=== PATIENT | female | born 1965 | race Caucasian/White ===

== ENCOUNTER 2022-11-08 16:50 | Emergency (ER) | payer SELFPAY ==
[~2022-11-08] VITALS: Ht 166 cm; Wt 68.0 kg
--- NOTE | 2022-11-08 17:10 | ED General ---
General Chief Complaint: General Problems/Pain Stated Complaint: HEMOGLOBIN LOW Source of Information: Patient Exam Limitations: No Limitations History of Present Illness Date Seen by Provider: Nov 08, 2022 Time Seen by Provider: 17:07 Initial Comments Patient is a 56-year-old female with a history of RA, sciatica Psoriatic arthritis, fibromyalgia who presents ED for low hemoglobin. Had lab work drawn yesterday with a hemoglobin of 8. Lab work drawn last month with a hemoglobin of 10. Patient states she has had intermittent abdominal pain but no pain today. She states she has been feeling weak and fatigue over the past 2 to 3 weeks. 15 pound weight loss over the past month. She states she has been told that she has been anemic. She is currently on emberol injections. She does report chronic joint pain. Was seen by her primary care physician yesterday and states she had a prescription sent for prednisone. She also reports feeling short of breath over the past month. Denies of any specific chest pain. Denies of any blood thinner use. History of dark urine but none over the past few weeks. Denies any dark tarry stool. She does take 800 mg ibuprofen daily. Denies of any excessive alcohol use. History of . She denies headache, fever, neck pain, visual changes, sore throat, chest pain, history of coronary artery disease, vomiting. Episode of diarrhea yesterday. She does smoke. Denies COPD or asthma. Was recommended come the ED for CT scan of her abdomen and recheck of her lab work. She does not take iron supplements. Allergies and Home Medications Allergies Coded Allergies: No Known Drug Allergies (Unverified , 11/08/22) Patient Home Medication List Home Medication List Reviewed: Yes Review of Systems Review of Systems Constitutional: No chills, No diaphoresis, No fever; malaise, weakness Respiratory: No cough, No dyspnea on exertion; short of breath Cardiovascular: No chest pain, No edema, No palpitations, No syncope Gastrointestinal: abdominal pain, diarrhea; No nausea, No vomiting Genitourinary: No decreased output, No discharge, No dysuria, No frequency, No hematuria Musculoskeletal: No back pain, No joint pain Skin: No change in color, No change in hair/nails All Other Systems Reviewed Negative Unless Noted: Yes Physical Exam Vital Signs Vital Signs - First Documented 11/08/22 16:58 Temp 36.9 Pulse 84 Resp 20 B/P (MAP) 137/67 (90) Pulse Ox 98 Capillary Refill : Height, Weight, BMI Height: '" Weight: lbs. oz. kg; BMI Method: General Appearance: No Apparent Distress, WD/WN Eyes: Bilateral Eye Normal Inspection, Bilateral Eye PERRL, Bilateral Eye EOMI HEENT: PERRL/EOMI, TMs Normal, Normal ENT Inspection, Pharynx Normal Neck: Full Range of Motion, Normal Inspection, Non Tender, Supple Respiratory: Chest Non Tender, Lungs Clear, Normal Breath Sounds, No Accessory Muscle Use, No Respiratory Distress Cardiovascular: Regular Rate, Rhythm, No Edema, No Gallop, No JVD Gastrointestinal: Normal Bowel Sounds, No Organomegaly, No Pulsatile Mass, Non Tender Back: Normal Inspection, No CVA Tenderness, No Vertebral Tenderness Extremity: Normal Capillary Refill, Normal Inspection, Normal Range of Motion, Non Tender Skin: Other (Psoriatic diffuse rash.) Progress/Results/Core Measures Suspected Sepsis SIRS Temperature: Pulse: Respiratory Rate: Laboratory Tests 11/08/22 17:04: White Blood Count 9.9 Blood Pressure / Mean: Laboratory Tests 11/08/22 17:04: Creatinine 1.01, INR Comment 1.0, Platelet Count 501H, Total Bilirubin 0.2 Results/Orders Lab Results Laboratory Tests Test 11/08/22 17:04 11/08/22 18:19 11/09/22 08:39 Range/Units White Blood Count 9.9 4.3-11.0 10^3/uL Red Blood Count 2.91 L 3.80-5.11 10^6/uL Hemoglobin 7.3 L 11.5-16.0 g/dL Hematocrit 24 L 35-52 % Mean Corpuscular Volume 83 80-99 fL Mean Corpuscular Hemoglobin 25 25-34 pg Mean Corpuscular Hemoglobin Concent 30 L 32-36 g/dL Red Cell Distribution Width 15.2 H 10.0-14.5 % Platelet Count 501 H 130-400 10^3/uL Mean Platelet Volume 9.6 9.0-12.2 fL Immature Granulocyte % (Auto) 0 % Neutrophils (%) (Auto) 48 42-75 % Lymphocytes (%) (Auto) 12 12-44 % Monocytes (%) (Auto) 8 0-12 % Eosinophils (%) (Auto) 32 H 0-10 % Basophils (%) (Auto) 0 0-10 % Neutrophils # (Auto) 4.7 1.8-7.8 10^3/uL Lymphocytes # (Auto) 1.2 1.0-4.0 10^3/uL Monocytes # (Auto) 0.8 0.0-1.0 10^3/uL Eosinophils # (Auto) 3.1 H 0.0-0.3 10^3/uL Basophils # (Auto) 0.0 0.0-0.1 10^3/uL Immature Granulocyte # (Auto) 0.0 0.0-0.1 10^3/uL Neutrophils % (Manual) 50 % Lymphocytes % (Manual) 7 % Monocytes % (Manual) 12 % Eosinophils % (Manual) 31 % Basophils % (Manual) 0 % Band Neutrophils 0 % Polychromasia SLIGHT Hypochromasia SLIGHT Anisocytosis SLIGHT Prothrombin Time 13.7 12.2-14.7 SEC INR Comment 1.0 0.8-1.4 Activated Partial Thromboplast Time 26 24-35 SEC Sodium Level 140 135-145 MMOL/L Potassium Level 3.3 L 3.6-5.0 MMOL/L Chloride Level 109 H 98-107 MMOL/L Carbon Dioxide Level 17 L 21-32 MMOL/L Anion Gap 14 5-14 MMOL/L Blood Urea Nitrogen 11 7-18 MG/DL Creatinine 1.01 0.60-1.30 MG/DL Estimat Glomerular Filtration Rate 66 BUN/Creatinine Ratio 11 Glucose Level 121 H 70-105 MG/DL Calcium Level 8.4 L 8.5-10.1 MG/DL Corrected Calcium 8.9 8.5-10.1 MG/DL Total Bilirubin 0.2 0.1-1.0 MG/DL Aspartate Amino Transf (AST/SGOT) 18 5-34 U/L Alanine Aminotransferase (ALT/SGPT) 15 0-55 U/L Alkaline Phosphatase 82 40-136 U/L Troponin I < 0.028 <0.028 NG/ML B-Type Natriuretic Peptide 106.9 H <100.0 PG/ML Total Protein 6.7 6.4-8.2 GM/DL Albumin 3.4 3.2-4.5 GM/DL Urine Color ORANGE Urine Clarity CLOUDY Urine pH 6.0 5-9 Urine Specific Strang 1.025 H 1.016-1.022 Urine Protein TRACE H NEGATIVE Urine Glucose (UA) NEGATIVE NEGATIVE Urine Ketones NEGATIVE NEGATIVE Urine Nitrite NEGATIVE NEGATIVE Urine Bilirubin 1+ H NEGATIVE Urine Urobilinogen 0.2 < = 1.0 MG/DL Urine Leukocyte Esterase NEGATIVE NEGATIVE Urine RBC (Auto) 2+ H NEGATIVE Urine RBC 2-5 H /HPF Urine WBC 0-2 /HPF Urine Squamous Epithelial Cells 5-10 /HPF Urine Crystals PRESENT H /LPF Urine Amorphous Sediment LARGE JARRET URATES H /LPF Urine Bacteria TRACE /HPF Urine Casts PRESENT /LPF Urine Hyaline Casts 0-2 H /LPF Urine Mucus LARGE H /LPF Urine Culture Indicated NO Lab Scanned Report Transfusion Reaction Form [id number] My Orders Orders - FERNANDA VAIL PA Cbc With Automated Diff (11/08/22 17:04) Comprehensive Metabolic Panel (11/08/22 17:04) Partial Thromboplastin Time (11/08/22 17:04) Protime With Inr (11/08/22 17:04) Ekg Tracing (11/08/22 17:04) Bnp [place] (11/08/22 17:04) Troponin I [place] (11/08/22 17:04) Chest 1 View, Ap/Pa Only (11/08/22 17:04) Ua Culture If Indicated (11/08/22 17:04) Ct Abdomen/Pelvis W (11/08/22 17:04) Type And Screen (11/08/22 17:05) Manual Differential (11/08/22 17:04) Pantoprazole Injection (Protonix Injecti (11/08/22 17:30) Iohexol Injection (Omnipaque 350 Mg/Ml 1 (11/08/22 18:15) Received Contrast (Hold Metformin- Contr (11/08/22 18:15) Ns (Ivpb) (Sodium Chloride 0.9% Ivpb Bag (11/08/22 18:15) Sodium Chloride Flush (Catheter Flush Sy (11/08/22 18:15) Red Cells Leukocytes Reduced (11/08/22 18:58) Ns Iv 1000 Ml (Sodium Chloride 0.9%) (11/08/22 19:45) Potassium Chloride (Tablet) (K Dur Table (11/08/22 21:30) Medications Given in ED Vital Signs/I&O 11/08/22 11/08/22 11/08/22 11/08/22 16:58 19:58 20:15 20:35 Temp 36.9 37.1 36.9 36.8 Pulse 84 81 77 78 Resp 20 22 20 22 B/P (MAP) 137/67 (90) 139/63 163/90 136/90 Pulse Ox 98 100 99 100 11/08/22 11/08/22 11/08/22 21:20 21:39 22:35 Temp 36.7 36.6 Pulse 78 77 89 Resp 22 20 B/P (MAP) 142/85 154/89 151/80 Pulse Ox 97 96 97 Capillary Refill : ECG Comment Sinus rhythm, possible left atrial enlargement, 81 bpm, QRS duration 77 MS, QTc 436 MS. Departure Communication (PCP) History of RA, Psoriatic arthritis, fibromyalgia presents ED for low hemoglobin. Lab work drawn yesterday hemoglobin of 8. She states her hemoglobin was 10 last month. Denies of any dark tarry stool. Intermittent hematuria but does not feel like her urine is dark today. No vomiting. No specific abdominal pain. Her primary care physician wanting to get a CT abdomen pelvis. She denies history of colonoscopy history of cancer. Weakness fatigue short of breath. No known cardiac history. General lab work, type and screen, CT abd pelvis, chest x-ray, EKG was ordered. EKG did not show any evidence of ST elevation or depression. Normal troponin. Chest x-ray negative for pneumonia, pleural effusion or pulmonary edema. No appreciation of lower leg swelling. She did have a slight bump in her BNP 106. Hemoglobin 7.3. Hematocrit 24. Platelets 501. Normal coags. Chemistry showed potassium of 3.3. Normal kidney function. Glucose 121. CT abdomen pelvis negative for acute abnormality. Hemoccult test negative. Urinalysis with hematuria without evidence of infection. CT abdomen pelvis negative for nephrolithiasis, blood products, obstruction, mass. Due to low hemoglobin patient was discussed with Dr. Alonzo on-call for [facility]. Did discussed observation and recheck hemoglobin in the morning since her hemoglobin has dropped from 8-7.3 in a day. She suggests given a unit of blood. Recheck hematocrit with no admitted. If improvement patient can follow-up outpatient with general surgery with no admission. Would likely benefit with upper EGD and colonoscopy for further evaluation. No obvious source of bleeding. Hematuria did note in the urine. Suggest urology outpatient follow-up. Recommend recheck of her hemoglobin in the next 1 to 2 days. Discussed starting iron supplements. Anemia is likely more chronic secondary to chronic diseases. Will require further evaluation and work-up. Patient refused second blood draw to compare hemoglobin. Provided general surgery outpatient follow-up for further evaluation. Patient vital signs stable. Patient is not on anticoagulants Impression Primary Impression: Anemia Disposition: 01 HOME, SELF-CARE Condition: Stable Departure-Patient Inst. Decision time for Depature: 20:47 Referrals: RUBÉN ESPINOSA MD (PCP) Primary Care Physician SEAN BUNN DO Patient Instructions: Anemia of inflammation (anemia of chronic disease) Add. Discharge Instructions: Need to follow-up with GI for further evaluation and colonoscopy. Would recommend taking iron supplements. All discharge instructions reviewed with patient and/or family. Voiced und erstanding. FERNANDA VAIL Nov 08, 2022 17:10
[2022-11-08 17:16] LABS: BASOPHILS % (AUTO) 0 % (0-10); EOSINOPHILS # (AUTO) 3.1 10^3/uL (0.0-0.3); EOSINOPHILS % (AUTO) 32 % (0-10); HEMATOCRIT 24 % (35-52); HEMOGLOBIN 7.3 g/dL (11.5-16.0); LYMPHOCYTES # (AUTO) 1.2 10^3/uL (1.0-4.0); LYMPHOCYTES % (AUTO) 12 % (12-44); MEAN CORPUSCULAR HEMOGLOBIN 25 pg (25-34); MEAN CORPUSCULAR HGB CONC 30 g/dL (32-36); MEAN CORPUSCULAR VOLUME 83 fL (80-99); MEAN PLATELET VOLUME 9.6 fL (9.0-12.2); MONOCYTES # (AUTO) 0.8 10^3/uL (0.0-1.0); MONOCYTES % (AUTO) 8 % (0-12); NEUTROPHILS # (AUTO) 4.7 10^3/uL (1.8-7.8); NEUTROPHILS % (AUTO) 48 % (42-75); PLATELET COUNT 501 10^3/uL (130-400); WHITE BLOOD COUNT 9.9 10^3/uL (4.3-11.0)
[2022-11-08 17:24] LABS: ALBUMIN 3.4 GM/DL (3.2-4.5); CHLORIDE 109 MMOL/L (98-107); POTASSIUM 3.3 MMOL/L (3.6-5.0); SODIUM 140 MMOL/L (135-145)
[2022-11-08 17:25] LABS: CALCIUM 8.4 MG/DL (8.5-10.1); PROTHROMBIN TIME PATIENT 13.7 SEC (12.2-14.7)
[2022-11-08 17:26] LABS: GLUCOSE 121 MG/DL (70-105)
[2022-11-08 17:27] LABS: TOTAL PROTEIN 6.7 GM/DL (6.4-8.2)
[2022-11-08 17:28] LABS: CARBON DIOXIDE 17 MMOL/L (21-32)
[2022-11-08 17:29] LABS: BILIRUBIN,TOTAL 0.2 MG/DL (0.1-1.0)
[2022-11-08 17:30] LABS: ALKALINE PHOSPHATASE 82 U/L (40-136); CREATININE SERUM 1.01 MG/DL (0.60-1.30); GFR ESTIMATED 66
[2022-11-08] MEDS ORDERED: PANTOPRAZOLE 40 MG (PROTONIX) VIAL IV ONE (17:30)
[2022-11-08 17:31] LABS: BUN/CREATININE RATIO 11
[2022-11-08 17:33] LABS: ALANINE AMINOTRANSFERASE 15 U/L (0-55)
--- NOTE | 2022-11-08 18:07 | Diagnostic Imaging Report ---
HISTORY: Shortness of breath TECHNIQUE: Frontal view of the chest COMPARISON: None FINDINGS: Lung volumes are normal. No consolidation is seen. There is no pleural effusion or pneumothorax. Mild prominence of the cardiac silhouette is likely due to portable technique. IMPRESSION: 1. No acute pulmonary abnormality. Dictated by: Dictated on workstation # [id number]
[2022-11-08 18:13] LABS: BAND NEUTROPHILS 0 %; BASOPHILS % (MANUAL) 0 %; EOSINOPHILS % (MANUAL) 31 %; LYMPHOCYTES % (MANUAL) 7 %; MONOCYTES % (MANUAL) 12 %; NEUTROPHILS % (MANUAL) 50 %
[2022-11-08 18:14] LABS: ANISOCYTOSIS SLIGHT; HYPOCHROMASIA SLIGHT; POLYCHROMASIA SLIGHT
[2022-11-08] MEDS ORDERED: HOLD METFORMIN - RECEIVED CONTRAST 20 ML VIAL IV SCH (18:15)
[2022-11-08] MEDS ORDERED: CATHETER FLUSH 10 ML SYR IV PRN (18:15)
[2022-11-08] MEDS ORDERED: NS 100 ML (IVPB) BAG IV ONE (18:15)
[2022-11-08] MEDS ORDERED: IOHEXOL 350 MG/ML 100 ML (OMNIPAQUE 350) VIAL IV ONE (18:15)
[2022-11-08 18:22] LABS: CLARITY,URINE CLOUDY; COLOR,URINE ORANGE; GLUCOSE, URINE (UA) NEGATIVE (NEGATIVE); KETONES,URINE NEGATIVE (NEGATIVE); LEUKOCYTE ESTERASE ,URINE NEGATIVE (NEGATIVE); NITRITE,URINE NEGATIVE (NEGATIVE); PROTEIN,URINE TRACE (NEGATIVE)
--- NOTE | 2022-11-08 18:25 | Diagnostic Imaging Report ---
PROCEDURE: CT abdomen and pelvis with contrast. TECHNIQUE: Multiple contiguous axial images were obtained through the abdomen and pelvis after administration of intravenous contrast. Auto Exposure Controls were utilized during the CT exam to meet ALARA standards for radiation dose reduction. All CT scans use one or more of the following dose optimizing techniques: Automated exposure control, MA and/or KvP adjustment based on patient size and exam type or iterative reconstruction. INDICATION: Abdominal pain. FINDINGS: There is some scarring or atelectasis in the lung bases. The heart size is normal. The liver is normal in size without focal lesions. Gallbladder is contracted. The spleen is normal. There is no biliary ductal dilatation. The pancreas and adrenal glands are unremarkable. Kidneys are normal in appearance. The aorta is nonaneurysmal. Bowel gas pattern is nonspecific. The appendix is normal. There is no free air. There is no ascites. There are no focal inflammatory changes. There is no pelvic mass, adenopathy, or free fluid. The osseous structures are unremarkable. IMPRESSION: Scarring or atelectasis in the lung bases. No other acute abnormality in the abdomen or pelvis. Dictated by: Dictated on workstation # [id number]
[2022-11-08 18:31] LABS: BACTERIA,URINE TRACE /HPF; WBC,URINE 0-2 /HPF
[2022-11-08 18:32] LABS: AMORPHOUS SEDIMENT,UR LARGE AMOR URATES /LPF; BILIRUBIN,URINE 1+ (NEGATIVE); HYALINE CASTS, URINE 0-2 /LPF
[2022-11-08] MEDS ORDERED: NS IV 1000 ML 1,000 ML ONE (19:45)
[2022-11-08 19:58] VITALS: BP 139/63
[2022-11-08 20:15] VITALS: BP 163/90
[2022-11-08 20:35] VITALS: BP 136/90
[2022-11-08 21:20] VITALS: BP 142/85
[2022-11-08] MEDS ORDERED: KCL 20 MEQ TAB (K-DUR) PO ONE (21:30)
[2022-11-08 21:39] VITALS: BP 154/89
[2022-11-08 22:35] VITALS: BP 151/80
== END 2022-11-08 22:40 | disposition home or self-care (01) ==
LOC: ER 16:53
DX: D64.9 Anemia, unspecified (principal); R31.9 Hematuria, unspecified; F17.210 Nicotine dependence, cigarettes, uncomplicated; Z79.1 Long term (current) use of non-steroidal anti-inflammatories (NSAID)
CPT/HCPCS: 71045; 74177; 80053; 81000; 82274; 83880; 84484; 85007; 85027; 85610; 85730; 86850; 86900; 86901; 86920; 93005; 99284; P9016; 36415